=== PATIENT | female | born 1960 | race Caucasian/White ===

== ENCOUNTER 2021-03-04 19:05 | Emergency (ER) | payer OTHER ==
[~2021-03-04] VITALS: Ht 154.9 cm; Wt 83.0 kg
[2021-03-04] MEDS ORDERED: WELLBUTRIN XL150 M1 (19:30)
[2021-03-04] MEDS ORDERED: BAYER CHEWABLE81 MG PO (19:30)
[2021-03-04] MEDS ORDERED: PROTONIX40 MG PO (19:30)
[2021-03-04] MEDS ORDERED: VESICARE5 MG (19:30)
[2021-03-04] MEDS ORDERED: ZOLOFT25 MG (19:30)
[2021-03-04 19:31] VITALS: Ht 154.9 cm; Wt 83.0 kg
[2021-03-04] MEDS ORDERED: SINGULAIR5 MG PO (19:31)
[2021-03-04] MEDS ORDERED: PRAVACHOL20 MG (19:31)
[2021-03-04 19:47] LABS: BASOPHILS 0.3 % (0-2); EOSINOPHILS 4.1 % (0-7); HEMOGLOBIN 15.1 g/dL (12-16); IMMATURE GRANULOCYTES 0.1 % (0-5); LYMPHOCYTE ABS# 2.23 10x3/uL (1.18-3.74); LYMPHOCYTES 29.6 % (15-50); MCH 31.3 pg (26.0-34.0); MCHC 33.6 g/dL (31.0-37.0); MCV 93.4 fL (80.0-100.0); MEAN PLATELET VOLUME 11.1 fL (7.4-10.4); MONOCYTES 5.6 % (2-11); NEUTROPHIL ABS# 4.55 10x3/uL (1.56-6.13); NEUTROPHILS 60.3 % (40-80); PLATELET COUNT 125 10x3/uL (130-400); RBC 4.82 10x6/uL (4.00-5.40); RDW 12.9 % (11.5-14.5); WBC 7.5 10x3/uL (4.8-10.8)
[2021-03-04 19:54] LABS: ANION GAP 14.4 mmol/L (8-16); CARBON DIOXIDE 26.2 mmol/L (21.0-32.0); CREATININE - SERUM 1.2 mg/dL (0.6-1.3); POTASSIUM - SERUM 3.6 mmol/L (3.5-5.1)
[2021-03-04 20:00] LABS: ALBUMIN 3.5 g/dL (3.4-5.0); BILIRUBIN - TOTAL 0.5 mg/dL (0.2-1.3); PROTEIN - SERUM 7.1 g/dL (6.4-8.2)
[2021-03-04] MEDS ORDERED: OMNICEF300 MG PO (20:02)
[2021-03-04] MEDS ORDERED: FLUTICASONE PRO16 GM NASAL (20:02)
[2021-03-04 20:36] VITALS: BP 120/63
== END 2021-03-04 20:38 | disposition home or self-care (01) ==
LOC: D.ER 19:05
PROVIDERS: Family Medicine
DX: J01.90 Acute sinusitis, unspecified (principal); J44.9 Chronic obstructive pulmonary disease, unspecified; Z72.0 Tobacco use